=== PATIENT | male | born 1975 | race Caucasian/White ===

== ENCOUNTER 2018-03-29 12:20 | Emergency (ER) | payer OTHER ==
[2018-03-29 12:49] LABS: BASOPHILS # (AUTO) 0.1 10^3/uL (0.0-0.1); BASOPHILS % (AUTO) 1.1 %; EOSINOPHILS # (AUTO) 0.1 10^3/uL (0.0-0.7); EOSINOPHILS % (AUTO) 1.8 %; HGB - HEMOGLOBIN 15.8 g/dL (14.0-18.0); LYMPHOCYTES # (AUTO) 1.8 10^3/uL (1.5-3.5); MEAN CORPUSCULAR HEMOGLOBIN 31.8 pg (27.0-31.0); MEAN CORPUSCULAR HGB CONC 34.7 g/dL (32.0-36.0); MEAN CORPUSCULAR VOLUME 91.7 fL (80.0-94.0); MEAN PLATELET VOLUME 8.9 fL (7.4-11.4); MONOCYTES # (AUTO) 0.6 10^3/uL (0.0-1.0); MONOCYTES % (AUTO) 9.5 %; NEUTROPHILS # (AUTO) 3.8 10^3/uL (1.5-6.6); NEUTROPHILS % (AUTO) 59.6 %; PLT - PLATELET COUNT 254 10^3/uL (130-450); RED BLOOD COUNT 4.96 10^6/uL (4.70-6.10); WHITE BLOOD COUNT 6.4 x10^3/uL (4.8-10.8)
[2018-03-29 12:59] LABS: ALBUMIN 4.9 g/dL (3.2-5.5); ALBUMIN/GLOBULIN RATIO 1.5 (1.0-2.2); BILIRUBIN,TOTAL 0.8 mg/dL (0.2-1.0); TOTAL PROTEIN 8.2 g/dL (6.7-8.2)
--- NOTE | 2018-03-29 13:13 | XRAY Report ---
Reason: chest pain Procedure Date: 03/29/2018 Accession Number: [id number] / [id number] Procedure: XR - Chest 2 View X-Ray CPT Code: 05265 FULL RESULT: EXAM: CHEST RADIOGRAPHY EXAM DATE: 03/29/2018 01:03 PM. CLINICAL HISTORY: Chest pain. COMPARISON: None. TECHNIQUE: 2 views. FINDINGS: Lungs/Pleura: No focal opacities evident. No pleural effusion. No pneumothorax. Normal volumes. Mediastinum: Heart and mediastinal contours are unremarkable. Other: None. IMPRESSION: No acute cardiopulmonary abnormality. RADIA
[2018-03-29] MEDS ORDERED: POTASSIUM BICARB 25 MEQ TABLET PO STA (13:39)
--- NOTE | 2018-03-29 13:39 | ED Physician Documentation ---
PD HPI CHEST PAIN - Stated complaint Stated Complaint: HEART FLUTTER - Chief complaint Chief Complaint: Cardiac - History obtained from History obtained from: Patient - History of Present Illness Timing - onset: Today Timing - onset during: Rest (has noted feeling of palpitations intermittently. Has some feeling of tingling in fingers both sides at times with it. No near syncope.). No: Exertion Timing - duration: Seconds Timing - details: Intermittant Quality: No: Pressure (just feeling of skipping at times), Tightness Location: Substernal Improved by: No: Rest Worsened by: No: Exertion, Inspiration Associated symptoms: Feeling faint / dizzy (at times with it), Palpitations. No: Shortness of air, Nausea, General Weakness Similar symptoms before: Has not had sx before, Other (has been doing vigorous exercising the past month without exertional CP nor dyspnea, nor lightheadedness.) Recently seen: Not recently seen Review of Systems Constitutional: denies: Fever, Chills Nose: denies: Rhinorrhea / runny nose, Congestion Throat: denies: Sore throat Cardiac: reports: Palpitations. denies: Chest pain / pressure, Pedal edema, Calf pain Respiratory: denies: Dyspnea, Cough GI: denies: Abdominal Pain, Nausea, Vomiting, Diarrhea : denies: Dysuria, Frequency Neurologic: denies: Focal weakness, Numbness, Difficulty speaking, Confused, Altered mental status, Headache PD PAST MEDICAL HISTORY - Past Medical History Past Medical History: No Cardiovascular: None - Past Surgical History Past Surgical History: Yes HEENT: Other - Present Medications Home Medications: Ambulatory Orders Medication Instructions Recorded Confirmed Potassium Chloride 10 meq PO DAILY #14 tablet.er 03/29/18 - Allergies Allergies/Adverse Reactions: Allergies Allergy/AdvReac Type Severity Reaction Status Date / Time No Known Drug Allergies Allergy Verified 03/29/18 12:26 - Living Situation Living Situation: reports: With spouse/s.o. Living Arrangement: reports: At home - Social History Does the pt smoke?: No Smoking Status: Never smoker Does the pt drink ETOH?: Yes Does the pt have substance abuse?: No - Family History Family history: denies: CAD - Immunizations Immunizations are current?: Yes - POLST Patient has POLST: No PD ED PE NORMAL - Vitals Vital signs reviewed: Yes - General General: Alert and oriented X 3, No acute distress, Well developed/nourished - HEENT HEENT: Pharynx benign - Neck Neck: Supple, no meningeal sign, No adenopathy - Cardiac Cardiac: RRR, No murmur, No rub - Respiratory Respiratory: Clear bilaterally - Abdomen Abdomen: Soft, Non tender - Back Back: No CVA TTP - Derm Derm: Normal color, Warm and dry - Extremities Extremities: No tenderness to palpate, Normal ROM s pain, No edema, No calf tenderness / cord - Neuro Neuro: Alert and oriented X 3, No motor deficit, Normal speech Results - Vitals Vitals: Vital Signs - 24 hr 03/29/18 12:23 Temperature 36.1 C L Heart Rate 72 Respiratory 18 Rate Blood Pressure 145/95 H O2 Saturation 99 Oxygen O2 Source Room air - EKG (time done) 12:28 Rate: Rate (enter#) (76) Rhythm: NSR [place]: Normal Intervals: Normal [place] QRS: Normal Ischemia: Normal ST segments. No: ST elevation c/w ischemia, ST depression, Hyperacute T waves - Labs Labs: Laboratory Tests 03/29/18 03/29/18 03/29/18 12:36 12:36 12:36 WBC 6.4 RBC 4.96 Hgb 15.8 Hct 45.5 MCV 91.7 MCH 31.8 H MCHC 34.7 RDW 13.0 Plt Count 254 MPV 8.9 Neut # (Auto) 3.8 Lymph # (Auto) 1.8 [place] # (Auto) 0.6 Eos # (Auto) 0.1 Baso # (Auto) 0.1 Absolute Nucleated RBC 0.00 Nucleated RBC % 0.0 Sodium 133 L Potassium 3.4 L Chloride 99 L Carbon Dioxide 26 Anion Gap 8.0 BUN 11 Creatinine 1.0 Estimated GFR (MDRD) 82 L Glucose 109 H Calcium 9.0 Total Bilirubin 0.8 AST 33 ALT 47 Alkaline Phosphatase 52 Troponin I < 0.04 Total Protein 8.2 Albumin 4.9 Globulin 3.3 Albumin/Globulin Ratio 1.5 - Rads (name of study) chest xray Radiology: Prelim report reviewed, EMP read contemporaneously (normal) PD MEDICAL DECISION MAKING - ED course Complexity details: reviewed results, considered differential (having feeling of palpitations nonexertional (has been doing vigorous exercising the past month without exertional symptoms. ), d/w patient Departure - Departure Disposition: 01 Home, Self Care Clinical Impression: Heart palpitations, Paresthesia of both hands, Hypokalemia Condition: Stable Record reviewed to determine appropriate education?: Yes Instructions: ED Palpitations Follow-Up: AUDELIA DOSHI III, MD [Primary Care Provider] - Prescriptions: Potassium Chloride 10 meq PO DAILY #14 tablet.er Comments: Your basic tests as well as EKG and chest x-ray are normal here with the exception of a slightly low potassium. This may tie into the palpitations you have felt. Take a potassium supplement for the next 1 or 2 weeks. Follow-up with your primary care in the next few days, call for an appointment. If persistent symptoms that could potentially set you up with a recording device for your heart rhythm for 3-7 days. This can better define the frequency and type of irregular beats. However most the time these symptoms are benign and improve over a few days. Discharge Date/Time: 03/29/18 14:18
[2018-03-29 14:19] VITALS: BP 140/90
== END 2018-03-29 14:18 | disposition home or self-care (01) ==
LOC: ED 12:20
DX: R00.2 Palpitations (principal); R20.0 Anesthesia of skin; E87.6 Hypokalemia
CPT/HCPCS: 36415; 71046; 80053; 83735; 84443; 84484; 85025; 93005; 99283; A9270

== ENCOUNTER 2019-04-11 16:08 | Emergency (ER) | payer OTHER ==
--- NOTE | 2019-04-11 16:33 | ED Physician Documentation ---
PD HPI ABD PAIN - Stated complaint Stated Complaint: TESTICULAR PX - Chief complaint Chief Complaint: Abd Pain - History obtained from History obtained from: Patient - History of Present Illness Timing - onset: Other (Healthy 43-year-old gentleman, active duty in the [employer] has had 10 days of constant mild left testicular pain that is not positional or associated with swelling. No nausea. No urinary complaints.) Review of Systems Constitutional: reports: Reviewed and negative Cardiac: reports: Reviewed and negative Respiratory: reports: Reviewed and negative PD PAST MEDICAL HISTORY - Past Medical History Cardiovascular: None - Past Surgical History Past Surgical History: Yes HEENT: Other - Present Medications Home Medications: Ambulatory Orders Medication Instructions Recorded Confirmed Potassium Chloride 10 meq PO DAILY #14 tablet.er 03/29/18 - Allergies Allergies/Adverse Reactions: Allergies Allergy/AdvReac Type Severity Reaction Status Date / Time No Known Drug Allergies Allergy Verified 04/11/19 16:17 - Social History Does the pt smoke?: No Smoking Status: Never smoker Does the pt drink ETOH?: Yes Does the pt have substance abuse?: No - Immunizations Immunizations are current?: Yes - POLST Patient has POLST: No PD ED PE NORMAL - Vitals Vital signs reviewed: Yes - General General: Alert and oriented X 3, No acute distress - Abdomen Abdomen: Other (Mild tenderness of the left testicle. Normal cremaster reflex. No swelling. Normal lie. No inguinal mass or hernia.) - Derm Derm: Normal color, Warm and dry - Neuro Neuro: Alert and oriented X 3, Normal speech Results - Vitals Vitals: Vital Signs - 24 hr 04/11/19 16:15 Temperature 36.7 C Heart Rate 95 Respiratory 16 Rate Blood Pressure 157/84 H O2 Saturation 99 Oxygen O2 Source Room air - Labs Labs: Laboratory Tests 04/11/19 16:40 Urine Color YELLOW Urine Clarity CLEAR Urine pH 6.0 Ur Specific [place] 1.015 Urine Protein NEGATIVE Urine Glucose (UA) NEGATIVE Urine Ketones NEGATIVE Urine Occult Blood TRACE-INTA Urine Nitrite NEGATIVE Urine Bilirubin NEGATIVE Urine Urobilinogen 0.2 (NORMAL) Ur Leukocyte Esterase NEGATIVE Ur Microscopic Review NOT INDICATED Urine Culture Comments NOT INDICATED PD MEDICAL DECISION MAKING - ED course ED course: 43-year-old gentleman presents with 10 days of mild left testicular pain. Ult rasound was negative except for small hydroceles and a calcified lesion on the right epididymis. 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 He declined pain medication. Departure - Departure Disposition: 01 Home, Self Care Clinical Impression: Left testicular pain Condition: Good Record reviewed to determine appropriate education?: Yes Instructions: ED Testicular Pain [facility] Comments: Take the copy of the ultrasound report to your flight surgeon, discuss either repeat ultrasound or watchful waiting or urology referral. Return for new or worsening symptoms.
[2019-04-11 16:54] LABS: BILIRUBIN,URINE NEGATIVE (NEGATIVE); GLUCOSE, URINE (UA) NEGATIVE (NEGATIVE); KETONES,URINE (UA) NEGATIVE (NEGATIVE); LEUKOCYTE ESTERASE, URINE NEGATIVE (NEGATIVE); NITRITE,URINE NEGATIVE (NEGATIVE); OCCULT BLOOD,URINE TRACE-INTA (NEGATIVE); PROTEIN,URINE NEGATIVE (NEGATIVE); UROBILINOGEN,URINE 0.2 (NORMAL) E.U./dL (NORMAL)
[2019-04-11 16:57] LABS: CLARITY,URINE CLEAR (CLEAR)
--- NOTE | 2019-04-11 17:53 | Ultrasound Report ---
Reason: L testicular pain Procedure Date: 04/11/2019 Accession Number: [id number] / [id number] Procedure: US - Testicle w/Doppler CPT Code: FULL RESULT: US: US SCROTUM WITH DOPPLER EXAM: SCROTAL ULTRASOUND WITH DOPPLER EXAM DATE: 04/11/2019 05:40 PM. CLINICAL HISTORY: Left testicular pain. COMPARISON: None. TECHNIQUE: Real time sonographic grayscale and color/spectral Doppler images of the scrotum with static images were obtained. Spectral Doppler was used to completely evaluate the testicular vasculature for torsion. FINDINGS: Right: Testis: 4.7 x 1.9 x 3.4 cm. Normal size and echotexture. No mass. No calcification. Normal arterial and venous flow present. Epididymis: 2.7 x 0.9 x 1 cm. Lobular calcified mass extending off the head of the epididymis measures 6 x 4 mm. Hydrocele: Minimal. Varicocele: None. Testis: 4.4 x 2.2 x 3 cm. Normal size and echotexture. No mass. No calcification. Normal arterial and venous flow present. Epididymis: 3.1 x 0.7 x 1.3 cm. Normal size and echotexture. No mass. Normal blood flow is present. Hydrocele: Minimal. Varicocele: None. IMPRESSION: 1. No evidence for testicular torsion. No evidence for acute orchitis or epididymitis. No acute findings are seen. 2. Minimal bilateral hydroceles. 3.Lobular calcified mass extending off the head of the epididymis measures 6 x 4 mm. RAD[facility]
[2019-04-11 18:15] VITALS: BP 148/78
== END 2019-04-11 18:16 | disposition home or self-care (01) ==
LOC: ED 16:08
DX: N50.812 Left testicular pain (principal); N43.3 Hydrocele, unspecified
CPT/HCPCS: 76870; 81001; 81003; 87086; 93975; 99282; 99283